=== PATIENT | male | born 1975 | race Caucasian/White ===

== ENCOUNTER 2021-01-19 16:17 | Emergency (ER) | payer OTHER ==
[2021-01-19 17:15] LABS: BASOPHIL 0.2 % (0-2); EOSINOPHIL 0.8 % (0-5); HCT 48.6 % (42.0-52.0); HGB 16.2 g/dl (13.2-18.0); LYMPHOCYTE 11.9 % (15-48); MCH 32.3 pg (25.0-31.0); MCHC 33.3 g/dL (32.0-36.0); MONOCYTE 7.6 % (0-12); MPV 10.5 fL (6.0-9.5); NEUTROPHIL 78.7 % (41-80); NRBC 0; PLT 406 K/uL (150-400); RBC 5.01 M/uL (4.70-6.00); RDW 13.1 % (11.5-14.0); WBC 15.4 K/uL (4.0-10.5)
[2021-01-19 17:21] LABS: BILIRUBIN 1+ mg/dL (NEGATIVE); BLOOD NEGATIVE Ery/uL (NEGATIVE); CLARITY CLEAR (CLEAR); COLOR YELLOW (YELLOW); GLUCOSE (U) NORMAL (NORMAL); LEUKOCYTES TRACE Leu/uL (NEGATIVE); NITRITE NEGATIVE (NEGATIVE); PROTEIN TRACE (LOW) mg/dL (NEGATIVE); SPECIFIC GRAVITY >=1.030 (1.001-1.030)
[2021-01-19 17:23] LABS: ALBUMIN 3.3 g/dL (3.4-5.0); BUN/CREAT RATIO (CALC) 16.3 RATIO; CREATININE 1.04 mg/dL (0.67-1.17); MAGNESIUM 2.5 mg/dL (1.8-2.4); POTASSIUM 3.6 mmol/L (3.5-5.1); TOTAL PROTEIN 8.3 g/dL (6.4-8.2)
[2021-01-19 17:28] LABS: BACTERIA 2+; MUCOUS MODERATE
[2021-01-19] MEDS ORDERED: NAPROXEN500 MG PO (18:50)
[2021-01-19] MEDS ORDERED: NORCO 5-325 TA1 EACH PO (18:50)
[2021-01-19] MEDS ORDERED: ZOFRAN4 M1 PO (18:50)
[2021-01-19] MEDS ORDERED: BACTRIM DS TAB1 EACH PO (18:50)
== END 2021-01-19 19:10 | disposition home or self-care (01) ==
LOC: FER 16:17
PROVIDERS: Emergency Medicine
DX: N45.3 Epididymo-orchitis (principal); F17.210 Nicotine dependence, cigarettes, uncomplicated; Z98.890 Other specified postprocedural states
CPT/HCPCS: 36415; 76870; 80053; 81001; 83690; 83735; 85025; J0696; J1170; J1885; J2405; J7030

== ENCOUNTER → 2021-07-14 | Day surgery (SDC) | payer OTHER ==
[~2021-07-14] VITALS: Ht 182.9 cm; Wt 98.9 kg
[~2021-07-14] MED LIST: ACETAMINOPHEN500 M1 PO; ASCORBIC ACID500 MG PO; BACTRIM DS TAB1 EACH PO; COLACE100 MG PO; NAPROXEN500 MG PO; NORCO 5-325 TA1 EACH PO; OXY-IR 5MG5 MG PO; VITAMIN B122500 MCG PO; ZOFRAN4 M1 PO
== END | disposition home or self-care (01) ==
LOC: FAS 09:55
DX: K42.0 Umbilical hernia with obstruction, without gangrene (principal); F17.210 Nicotine dependence, cigarettes, uncomplicated; Z79.899 Other long term (current) drug therapy
CPT/HCPCS: J0690; J1644; J2250; J2370; J2405; J2704; J2710; J3010; J7120